=== PATIENT | female | born 1985 | race Caucasian/White ===

== ENCOUNTER 2022-05-26 14:07 | Emergency (ER) | payer BC, SELFPAY ==
[2022-05-26 14:12] VITALS: BP 141/74; PULSE 76; RESP 20; TEMP 36.9; O2SAT 99
--- NOTE | 2022-05-26 14:41 | DI.RAD_ITS ---
Exam(s) XR CERVICAL SP BROWN TRAUMA 2-3V EXAM: XR CERVICAL SP BROWN TRAUMA 2-3V CLINICAL HISTORY: lower c-spine upper t spine injury. TECHNIQUE: 2D digital imaging was performed. COMPARISON: No exams were available for comparison FINDINGS: BONES: No fracture or destructive lesion. Vertebral bodies are unremarkable. DISKS: Intervertebral disc spaces are maintained. ALIGNMENT: Cervical spinal alignment is within normal limits. The odontoid and atlantoaxial articulat ions are normal. SOFT TISSUE: Normal. The lung apices are clear. IMPRESSION: Unremarkable radiographs of the cervical spine. DATA REPOSITORY: RADIATION DOSE DELIVERED:
--- NOTE | 2022-05-26 15:18 | ED.GENADUL_ITS ---
Discharge Plan Disposition Patient Disposition: Home Condition: Stable Discharge Details Clinical Impression: Cervical myofascial strain [facility] Provider: [facility] Provider: Celestine Corea Home Meds and New Rx's Prescriptions: No Action No Known Home Meds Discharge Instructions Instructions: Cervical Strain (ED) Additional Instructions: You may continue to use [id number] pain medication as needed for discomfort. If you have any significant worsening of your symptoms numbness tingling or weakness to extremities please return to the emergency department. Otherwise follow-up with your primary care provider if not improving over the next 1 to 2 weeks. Referrals: Primary Care Provider [Outside] Discharge Data Discharge Date/Time-TO BE ENTERED AT DEPARTURE: 05/26/22 15:56 Medical Decision Making <Celestine Corea NP - Last Filed: 05/28/22 08:16> Patient presenting to the emergency department for chief complaint of neck/back injury. She states that she was sliding and fell off the sled causing injury. Patient denies any loss of consciousness, nausea vomiting, numbness tingling. Physical exam shows no tenderness to palpation of the C and T-spine, no muscular tenderness, no weakness to the upper extremities. Patient is able to rotate head [id number] but is extremely anxious and hesitant to full range of motion testing. Utilize shared decision making with patient to further discuss radiological imaging given mechanism of injury but patient has a very reassuring physical exam. After discussion of risk versus benefit we did decide to go forward with plain film imaging. Patient denies any need for pain medication at this time. Reviewed radiological imaging and radiologist interpretation that shows no acute findings. Do feel that patient can continue to monitor symptoms conservatively and if she develops any new or significant worsening of symptoms she was encouraged to return for further imaging otherwise to follow-up with primary care provider for reassessment if not improving. After discussion of diagnosis and plan of care patient has no further needs, questions, or concerns and states clear understanding to return to the emergency department for any worsening symptoms. This documentation was generated using [employer] system, please disregard any oddities of phrase or misspellings. Imaging Data Radiologic Study: Imaging: X-Ray Radiologist's impression: Exam(s) XR CERVICAL SP BROWN TRAUMA 2-3V EXAM: XR CERVICAL SP BROWN TRAUMA 2-3V CLINICAL HISTORY: lower c-spine upper t spine injury. TECHNIQUE: 2D digital imaging was performed. COMPARISON: No exams were available for comparison FINDINGS: BONES: No fracture or destructive lesion. Vertebral bodies are unremarkable. DISKS: Intervertebral disc spaces are maintained. ALIGNMENT: Cervical spinal alignment is within normal limits. The odontoid and atlantoaxial articulations are normal. SOFT TISSUE: Normal. The lung apices are clear. IMPRESSION: Unremarkable radiographs of the cervical spine. <Emerson Reynolds DO - Last Filed: 06/01/22 02:04> Patient presenting to the emergency department for chief complaint of neck/back injury. She states that she was sliding and fell off the sled causing injury. Patient denies any loss of consciousness, nausea vomiting, numbness tingling. Physical exam shows no tenderness to palpation of the C and T-spine, no muscular tenderness, no weakness to the upper extremities. Patient is able to rotate head [id number] but is extremely anxious and hesitant to full range of motion testing. Utilize shared decision making with patient to further discuss radiological imaging given mechanism of injury but patient has a very reassuring physical exam. After discussion of risk versus benefit we did decide to go forward with plain film imaging. Patient denies any need for pain medication at this time. Reviewed radiological imaging and radiologist interpretation that shows no acute findings. Do feel that patient can continue to monitor symptoms conservatively and if she develops any new or significant worsening of symptoms she was encouraged to return for further imaging otherwise to follow-up with primary care provider for reassessment if not improving. After discussion of diagnosis and plan of care patient has no further needs, questions, or concerns and states clear understanding to return to the emergency department for any worsening symptoms. This documentation was generated using [employer] system, please disregard any oddities of phrase or misspellings. Gail's documentation I did not partake in the patient's care. My name was added as a documentation error. Please refer to Celestine Corea's physical exam, assessment and plan. HPI <Celestine Corea NP - Last Filed: 05/28/22 08:16> General Mode of arrival: ambulatory . Date/Time Provider Initiated Documentation: 05/26/22 14:23 . Limitations to Documentation: no limitations . Information obtained by: patient and RN notes reviewed . History of Present Illness 36 year old F presents to the emergency department with the chief complaint of Lower neck pain due to sledding accident, described as moderate, with intensity rated at 4. Quality is described as aching, and is localized to the neck. Patient reports no radiation. Patient started experiencing this day(s) (3) and it has been constant. No relieving factors improve symptom(s), No exacerbating factors reported . Patient notes no other symptoms.. Patient did receive the following treatments prior to arrival, NSAID Related Data Home Medications Medication Instructions Recorded Confirmed Unknown [No Known Home Meds] 05/26/22 05/26/22 Allergies Allergy/AdvReac Type Severity Reaction Status Date / Time vancomycin AdvReac Severe Swelling/Ed Unverified 05/26/22 14:18 sean General Stated Complaint: Nk/Back Pain SARA: 4 Review of Systems <Celestine Corea NP - Last Filed: 05/28/22 08:16> Narrative: 6 systems reviewed and unremarkable except what is marked below. ENT Ears, Nose, Mouth, and Throat: Reports neck pain Musculoskeletal Musculoskeletal: Reports as per HPI, Reports neck pain, Denies numbness and Denies tingling Neurologic Neurologic: Denies numbness and Denies tingling PFSH <Celestine Corea NP - Last Filed: 05/28/22 08:16> All Active Problems (Updated 05/26/22 @ 15:43 by Celestine Corea NP) Cervical myofascial strain (Acute) Social History Smoking/Tobacco Use Status: Never Smoking risk assessment performed?: Yes Alcohol Intake: current Alcohol Intake frequency: a few times a month Drug use: Never Substance use type: does not use Do you feel safe at home: Yes Do you feel safe in your relationship?: Yes Exam <Celestine Corea NP - Last Filed: 05/28/22 08:16> Const General: cooperative, no acute distress and not ill appearing Orientation: alert, awake and oriented x3 Neck Neck: normal visual inspection Resp Effort & Inspection: normal respiratory effort, able to speak in complete sentences and no respiratory distress Back/Spine/Pelvis Cervical Spine: normal cervical lordosis, No loss of normal cervical lordosis, No cervical muscular tenderness, No pain with cervical ROM, No cervical spinal tenderness and cervical ROM abnormal (Patient with significant anxiety with that he range of motion) Thoracic/Lumbar Spine: thoracic and lumbar spine normal to inspection and No thoracic spinal tenderness Skin General skin exam: no rashes or lesions noted Neuro General: patient alert, patient awake, patient oriented x3, moves all extremities and no focal motor deficits Gait: normal gait Motor: muscle tone normal throughout and strength 5/5 throughout Sensory Exam: no sensory deficits noted Course <Celestine Corea NP - Last Filed: 05/28/22 08:16> Vital Signs Vital signs: Vital Signs Temperature 36.9 C 05/26/22 14:12 Pulse 76 05/26/22 14:12 Respiratory Rate 20 05/26/22 14:12 Blood Pressure 141/74 H 05/26/22 14:12 Pulse Oximetry 99 05/26/22 14:12 Temperature 36.9 C 05/26/22 14:12 Temperature Source Temporal Artery Scan 05/26/22 14:12 Pulse 76 05/26/22 14:12 Respiratory Rate 20 05/26/22 14:12 Respiratory Effort 05/26/22 14:15 Blood Pressure 141/74 H 05/26/22 14:12 Blood Pressure Position Sitting 05/26/22 14:12 Pulse Oximetry 99 05/26/22 14:12 Oxygen Delivery Method Room Air 05/26/22 14:12 Oxygen Flow Rate 0 05/26/22 14:12 Pain Level 4 05/26/22 14:16 Lab/Test Results Lab/Test Results: POC- Test(urine) Negative PAWSS <Celestine Corea NP - Last Filed: 05/28/22 08:16> Have you Been Recently Intoxicated or Drunk Within the Last 30 days?: No Have you Ever Experienced Previous Episodes of Alcohol Withdrawal?: No Have you ever Experienced Withdrawal Seizures?: No Have you ever Experienced Delirium Tremens(DT)s?: No Have you ever undergone Alcohol Rehabilitation Treatment (i.e, inpt ot outpatient treatment programs)?: No Have you ever Experienced Blackouts?: No Have you ever Combined Alcohol with other Downers within the last 90 days?: No Have you ever Combined Alcohol with any other Substance of Abuse during the last 90 days?: No Result: 0 <Emerson Reynolds DO - Last Filed: 06/01/22 02:04> Result: 0
[2022-05-26 15:55] VITALS: BP 110/68; PULSE 72; RESP 16; TEMP 36.5; O2SAT 98
== END 2022-05-26 15:56 | disposition home or self-care (01) ==
PROVIDERS: Emergency Provider Nurse Practitioner Family
DX: S16.1XXA Strain of muscle, fascia and tendon at neck level, initial encounter (principal); F41.9 Anxiety disorder, unspecified; V00.221A Fall from sled, initial encounter; Y93.23 Activity, snow (alpine) (downhill) skiing, snowboarding, sledding, tobogganing and snow tubing
CPT/HCPCS: 81025; 99283; 72040; 99282